=== PATIENT | female | born 1970 | race Caucasian/White ===

== ENCOUNTER 2018-12-08 05:40 | Day surgery (SDC) | payer OTHER ==
[~2018-12-08] VITALS: Ht 157.5 cm; Wt 89.1 kg
[~2018-12-08 05:40] MED LIST: PHENYLEPHRINE HCL 2.5% 2 ML OPHTHALMIC SOLUTION ONE; RINGERS SOLUTION,LACTATED 500 ML IV ONE; TETRACAINE HCL/PF 0.5% 4 ML OPHTHALMIC SOLUTION ONE
[2018-12-08] MEDS ORDERED: LIDOCAINE/PF 2% 5 ML VIAL INJ ONE (05:41)
[2018-12-08] MEDS ORDERED: PROPOFOL 1% 20 ML VIAL IVP ONE (05:41)
[2018-12-08] MEDS ORDERED: RINGERS SOLUTION,LACTATED 500 ML IV ONE (06:30)
[2018-12-08] MEDS ORDERED: LISI-661 PO (06:35)
[2018-12-08] MEDS ORDERED: SITA100 PO (06:35)
[2018-12-08] MEDS ORDERED: CHOL100018 PO (06:35)
[2018-12-08] MEDS ORDERED: ATOR40TA28 PO (06:35)
[2018-12-08] MEDS ORDERED: METF-960 PO (06:35)
[2018-12-08] MEDS ORDERED: GABA-529 PO (06:35)
[2018-12-08 06:36] LABS: GLUCOMETER DEV NAME(LOC) SDS.; GLUCOSE,POINT OF CARE 139 MG/DL (70-110)
[2018-12-08] MEDS ORDERED: OFLOXACIN 0.3% 5 ML OPHTHALMIC SOLUTION ONE (06:44)
[2018-12-08] MEDS ORDERED: ACETAMINOPHEN 325 MG TABLET PO PRN (06:45)
[2018-12-08] MEDS ORDERED: PHENYLEPHRINE HCL 2.5% 2 ML OPHTHALMIC SOLUTION OS ONE (06:45)
[2018-12-08] MEDS ORDERED: TETRACAINE HCL/PF 0.5% 4 ML OPHTHALMIC SOLUTION OS ONE (06:45)
[2018-12-08] MEDS: OFLOXACIN 0.3% 5 ML OPHTHALMIC SOLUTION OS ONE ×2 (06:46→08:00)
[2018-12-08] MEDS ORDERED: TETRACAINE HCL/PF 0.5% 4 ML OPHTHALMIC SOLUTION ONE (06:55)
[2018-12-08] MEDS ORDERED: NEOMYCIN/POLYMYXIN B/DEXAMETH 3.5 GM OPHTHALMIC OINTMENT ONE (06:55)
[2018-12-08] MEDS ORDERED: LIDOCAINE 2%/EPI 1:200,000/PF 20 ML VIAL ONE (06:55)
[2018-12-08] MEDS ORDERED: BALANCED SALT 15 ML OPHTHALMIC IRRIG.SOLN ONE ×2 (06:56)
[2018-12-08] MEDS ORDERED: POVIDONE-IODINE 10% 15 ML SOLUTION UD ONE (07:01)
[2018-12-08] MEDS ORDERED: HYDROmorphone 2 MG/ML SYRINGE IVP PRN (07:15)
[2018-12-08] MEDS ORDERED: FentaNYL CITRATE-PF 100 MCG/2 ML VIAL IVP PRN (07:15)
[2018-12-08] MEDS ORDERED: MEPERIDINE-PF 25 MG/ML VIAL IVP PRN (07:15)
[2018-12-08] MEDS ORDERED: PrednisoLONE ACETATE 1% 5 ML OPHTHALMIC SUSPENSION ONE (07:26)
[2018-12-08] MEDS ORDERED: MitoMYcin 0.2 MG/VIAL KIT FOR OPHTHALMIC USE OS ONE (07:30)
[2018-12-08] MEDS ORDERED: FentaNYL CITRATE-PF 100 MCG/2 ML VIAL IVP ONE (12:00)
[2018-12-08] MEDS ORDERED: MIDAZOLAM HCL 2 MG/2 ML VIAL IVP ONE (12:00)
== END 2018-12-08 08:55 | disposition home or self-care (01) ==
LOC: SURGERY 05:40
PROVIDERS: ATTEND Ophthalmology
DX: H11.002 Unspecified pterygium of left eye (principal); I10 Essential (primary) hypertension; E11.9 Type 2 diabetes mellitus without complications; F41.9 Anxiety disorder, unspecified; E66.01 Morbid (severe) obesity due to excess calories; F34.9 Persistent mood [affective] disorder, unspecified; Z79.899 Other long term (current) drug therapy; Z90.49 Acquired absence of other specified parts of digestive tract; Z90.721 Acquired absence of ovaries, unilateral; Z98.890 Other specified postprocedural states
CPT/HCPCS: 65426; 82962; 84703; 88304; J2250; J2704; J3010; J3490; J7120

== ENCOUNTER 2021-01-09 05:37 | Day surgery (SDC) | payer OTHER ==
[~2021-01-09] VITALS: Ht 152.4 cm; Wt 86.3 kg
[~2021-01-09 05:37] MED LIST changes: +ATOR40TA28 PO; +CHOL100018 PO; +GABA-1216 PO; +LISI-893 PO; +METF-1211 PO; +MOXIFLOXACIN HCL 0.5% 3 ML OPHTHALMIC SOLUTION ONE; -PHENYLEPHRINE HCL 2.5% 2 ML OPHTHALMIC SOLUTION ONE; +SITA100 PO
[2021-01-09] MEDS ORDERED: MIDAZOLAM HCL 2 MG/2 ML VIAL IVP ONE (05:38)
[2021-01-09] MEDS ORDERED: NEOMYCIN/POLYMYXIN B/DEXAMETH 3.5 GM OPHTHALMIC OINTMENT OU ONE (05:38)
[2021-01-09] MEDS ORDERED: FentaNYL CITRATE PF 100 MCG/2 ML VIAL IVP ONE (05:38)
[2021-01-09] MEDS ORDERED: PHENYLEPHRINE HCL 2.5% 2 ML OPHTHALMIC SOLUTION OD ONE (06:00)
[2021-01-09] MEDS ORDERED: MOXIFLOXACIN HCL 0.5% 3 ML OPHTHALMIC SOLUTION OD ONE (06:00)
[2021-01-09] MEDS ORDERED: ACETAMINOPHEN 325 MG TABLET PO PRN (06:00)
[2021-01-09] MEDS ORDERED: TETRACAINE HCL/PF 0.5% 4 ML OPHTHALMIC SOLUTION OD ONE (06:00)
[2021-01-09 06:04] LABS: COVID AG,FIA SOURCE NASOPHARYNGEAL
[2021-01-09 06:20] LABS: GLUCOMETER DEV NAME(LOC) SDS.; GLUCOSE,POINT OF CARE 201 MG/DL (70-110)
[2021-01-09] MEDS ORDERED: EPHEDrine SULFATE 50 MG/ML VIAL ONE (06:35)
[2021-01-09] MEDS ORDERED: LIDOCAINE 1%/EPI 1:200,000/PF 10 ML VIAL ONE (06:35)
[2021-01-09] MEDS ORDERED: LIDOCAINE/PF 1% 2 ML VIAL ONE (06:35)
[2021-01-09] MEDS ORDERED: TETRACAINE HCL/PF 0.5% 4 ML OPHTHALMIC SOLUTION ONE (06:35)
[2021-01-09] MEDS ORDERED: NEOMYCIN/POLYMYXIN B/DEXAMETH 3.5 GM OPHTHALMIC OINTMENT ONE (06:35)
[2021-01-09] MEDS ORDERED: PHENYLEPHRINE HCL 2.5% 2 ML OPHTHALMIC SOLUTION ONE (06:38)
[2021-01-09] MEDS ORDERED: MitoMYcin 0.2 MG/VIAL KIT FOR OPHTHALMIC USE OD ONE (07:00)
[2021-01-09] MEDS ORDERED: MitoMYcin 0.2 MG/VIAL KIT FOR OPHTHALMIC USE OS ONE (07:00)
== END 2021-01-09 08:40 | disposition home or self-care (01) ==
LOC: SURGERY 05:37
PROVIDERS: ATTEND Ophthalmology
DX: H11.001 Unspecified pterygium of right eye (principal); I10 Essential (primary) hypertension; E11.9 Type 2 diabetes mellitus without complications; F41.9 Anxiety disorder, unspecified; E78.00 Pure hypercholesterolemia, unspecified; Z90.49 Acquired absence of other specified parts of digestive tract; Z98.890 Other specified postprocedural states; Z90.721 Acquired absence of ovaries, unilateral; Z79.899 Other long term (current) drug therapy
CPT/HCPCS: 65426; 82962; 87426; 93005; C9803; J2250; J3010; J3490 ×3; J7120; Q9967